=== PATIENT | male | born 1965 | race Hispanic/Latino ===

== ENCOUNTER 2017-11-05 08:21 | Day surgery (SDC) | payer OTHER ==
[2017-11-02 16:44] VITALS: BMI 24.6
--- NOTE | 2017-11-05 06:12 | HP ---
HISTORY OF PRESENT ILLNESS: Darren Hightower is a 52-year-old male patient with a right inguinal humberto ia for several years. The patient lives in [place], helps take care of his mother who is over 9 0 years old. The patient is single. He desires repair of his hernia, which he has had over three ye ars is bothersome to him. ALLERGIES: None. TOBACCO: Less than a pack per day. ALCOHOL: Rarely. MEDICATIONS: None. PAST MEDICAL HISTORY: Noncontributory. PAST MEDICAL HISTORY: Noncontributory. SOCIAL HISTORY: The patient is self employed as a contractor. REVIEW OF SYSTEMS: [place] noncontributory. He has never had a colonoscopy. PHYSICAL EXAMINATION: VITAL SIGNS: 125/87, 82, 97.5 degrees, 162 pounds, 68 inches. HEAD, EARS, EYES, NOSE, AND THROAT: Unremarkable. LUNGS: Clear to auscultation. CARDIAC: Regular rate and rhythm without murmur or gallop. ABDOMEN: Soft, nontender. EXTREMITIES: Unremarkable. He has a large right inguinal hernia on standing, it is reducible. EXTREMITIES: Tests are normal. Left groin without hernia. ASSESSMENT AND PLAN: Right inguinal hernia. I have recommended mesh repair. He understands risks of infection, bleeding, reoperation, chronic pa in, recurrence of hernia and consents. We will proceed. The patient is self-pay and he will work ou t financial obligations.
[2017-11-05 09:28] LABS: #Basophils 0.1 thou/uL (0.0-0.2); #Eosinphils 0.1 thou/uL (0.0-0.7); #Lymphocytes 1.1 thou/uL (1.20-3.40); #Monocytes 1.4 thou/uL (0.11-0.59); #Neutrophils 10.5 thou/uL (1.40-6.50); %Basophils 0.4 % (0.0-1.0); %Eosinophils 0.8 % (0.0-10.0); %Lymphocytes 8.4 % (21.0-51.0); %Monocytes 10.5 % (0.0-10.0); %Neutrophils 79.8 % (42.0-75.0); Mean Corpuscular HGB CONC 32.1 g/dL (32.0-36.0); Mean Corpuscular Hemoglobin 29.7 pg (27.0-31.0); Mean Corpuscular Volume 92.3 fl (80.0-94.0); Mean Platelet Volume 7.6 fL (7.4-10.4); Platelet Count 269 thou/uL (130-400); RBC Distribution Width 13.9 % (11.5-14.5); Red Blood Cell (RBC) Count 4.38 mill/uL (4.70-6.10); White Blood Cell (WBC) Count 13.1 thou/uL (4.8-10.8)
[2017-11-05] MEDS ORDERED: CEFAZOLIN/Water 2 GM/20 ML SYRINGE ONE (09:32)
[2017-11-05] MEDS ORDERED: Ketorolac Tromethamine 30 MG/ML VIAL ONE (09:33)
[2017-11-05 09:51] LABS: Anion Gap 17 mmol/L (10-20); BUN (Urea Nitrogen) 14 mg/dL (8.4-25.7); Calc. Creatinine Clearance 125 mL/min (70-130); Calcium 8.9 mg/dL (7.8-10.44); Carbon Dioxide 22 mmol/L (22-29); Chloride 97 mmol/L (98-107); Estimated GFR-MDRD Greater than 90; Glucose 88 mg/dL (70-105); Potassium 3.8 mmol/L (3.5-5.1); Sodium 132 mmol/L (136-145)
[2017-11-05] MEDS ORDERED: Bupivacaine 0.25% HCL 30 ML VIAL ONE (09:52)
[2017-11-05] MEDS ORDERED: Lidocaine 2% w/Epinephrine 1:200K 20 ML VIAL ONE (09:52)
[2017-11-05] MEDS ORDERED: Fentanyl 100 MCG/2 ML VIAL ONE (09:56)
[2017-11-05] MEDS ORDERED: Midazolam HCl 2 mg/2 ml Vial ONE (09:56)
--- NOTE | 2017-11-05 12:11 | OP ---
DATE OF PROCEDURE: 11/05/2017 PREOPERATIVE DIAGNOSIS: Right inguinal hernia, indirect. POSTOPERATIVE DIAGNOSIS: Right inguinal hernia, indirect PROCEDURE: PHS mesh repair, indirect right inguinal hernia. SURGEON: Dr. Chaz Doty ANESTHESIA: General. Local 0.25% Marcaine, 30 mL, mixed with 1% Xylocaine with epinephrine, 30 mL t otal mixture used. PROCEDURE: The patient was taken to the operating room where under general anesthesia, abdomen, groi n, scrotum clipped of hair, prepared with ChloraPrep, draped in routine fashion. Ioban was used. Lo audra anesthetic infiltrated into skin and subcutaneous tissue about the incision and for ilioinguinal nerve block and an incision made in the right groin and carried down through the skin and subcutaneou s tissue to the external oblique, incising it in the direction of fibers dissecting the cord structur es free and surrounded with a Calvin drain. There was a very large hernia sac dissected free from t he cord structures. Hernia sac opened. It had fluid in it,. clear ascites appeared fluid. This was aspirated. This communicated with the abdominal cavity. Hernia sac highly ligated with 0 Nurolon p ursestring suture and the stump of the hernia sac, 0 Nurolon suture used to secure underlay portion o f the PHS mesh with 0 Nurolon suture. Underlay portion of the PHS mesh placed in the preperitoneal s pace and onlay portion placed in the inguinal canal, placing the extended portion superiorly in the i nguinal canal. Inferiorly, the mesh secured to Tano's ligament with interrupted suture of 0 Nurolo n. Laterally, the mesh incised to the connecting cylindrical ring and in synthetic internal ring cre ated by bringing the lateral mesh around the cord structures and securing it back together again and Poupart's ligament with 0 Nurolon suture. Hernia repair was intact and as all instruments, sponge, n eedle counts were correct, the external oblique was closed with continuous suture of 3-0 Monocryl, Ca mper's with continuous suture of 3-0 Monocryl, skin with continuous subcuticular suture of 4-0 Monocr yl and DermaGlue applied. Local anesthetic had been infiltrated about the space of the inguinal rafia l and space above and below Camper's fascia for postoperative pain control. The patient tolerated th e procedure well.
[2017-11-05] MEDS ORDERED: Lidocaine 1% PF 5 ML VIAL ONE (15:53)
[2017-11-05] MEDS ORDERED: Propofol 200 MG/20 ML VIAL ONE (15:53)
[2017-11-05] MEDS ORDERED: Ondansetron HCl/PF 4 MG/2 ML Vial ONE (15:53)
[2017-11-05] MEDS ORDERED: Dexamethasone 20 MG/5 ML VIAL ONE (15:53)
== END 2017-11-05 13:20 | disposition home or self-care (01) ==
LOC: SDC 08:21
PROVIDERS: ATTEND Specialist
PROC: 0YU50JZ Supplement Right Inguinal Region with Synthetic Substitute, Open Approach (ICD-10-PCS; principal; 2017-11-05)
DX: K40.90 Unilateral inguinal hernia, without obstruction or gangrene, not specified as recurrent (principal); F17.210 Nicotine dependence, cigarettes, uncomplicated; Z88.5 Allergy status to narcotic agent
CPT/HCPCS: 36415; 80048; 85025; C1781; J0131; J1100; J1885; J2001; J2250; J2405; J2704; J3010; S0020

== ENCOUNTER 2017-12-07 19:53 | Inpatient (IN) | payer MEDICAID, OTHER, SELFPAY ==
[2017-12-07 20:55] LABS: #Basophils 0.4 thou/uL (0.0-0.2); #Eosinphils 0.1 thou/uL (0.0-0.7); #Lymphocytes 1.1 thou/uL (1.20-3.40); #Monocytes 1.3 thou/uL (0.11-0.59); #Neutrophils 15.5 thou/uL (1.40-6.50); %Eosinophils 0.4 % (0.0-10.0); %Lymphocytes 5.8 % (21.0-51.0); %Monocytes 7.1 % (0.0-10.0); %Neutrophils 84.7 % (42.0-75.0); Hemoglobin 11.9 g/dL (14.0-18.0); Mean Corpuscular HGB CONC 32.3 g/dL (32.0-36.0); Mean Corpuscular Hemoglobin 31.9 pg (27.0-31.0); Mean Corpuscular Volume 98.8 fl (80.0-94.0); Mean Platelet Volume 7.3 fL (7.4-10.4); Platelet Count 275 thou/uL (130-400); RBC Distribution Width 15.6 % (11.5-14.5); Red Blood Cell (RBC) Count 3.72 mill/uL (4.70-6.10); White Blood Cell (WBC) Count 18.3 thou/uL (4.8-10.8)
[2017-12-07 21:01] LABS: INR-International Normal Ratio 1.2; PTT 27.6 SEC (22.9-36.1); Prothrombin Time 15.5 SEC (12.0-14.7)
[2017-12-07 21:16] LABS: ALT (SGPT) 59 U/L (8-55); AST (SGOT) 256 U/L (5-34); Albumin 2.6 g/dL (3.5-5.0); Alkaline Phosphatase 749 U/L (40-150); Anion Gap 17 mmol/L (10-20); BUN (Urea Nitrogen) 25 mg/dL (8.4-25.7); Bilirubin, Total 12.9 mg/dL (0.2-1.2); Calc. Creatinine Clearance 0 mL/min (70-130); Calcium 8.3 mg/dL (7.8-10.44); Carbon Dioxide 23 mmol/L (22-29); Chloride 89 mmol/L (98-107); Estimated GFR-MDRD 66; Globulin 4.6 g/dL (2.4-3.5); Glucose 92 mg/dL (70-105); Protein, Total 7.2 g/dL (6.0-8.3); Sodium 124 mmol/L (136-145)
[2017-12-07] MEDS ORDERED: Enoxaparin Sodium 100 MG/ML SYRINGE ONE (21:36)
[2017-12-07] MEDS ORDERED: Sodium Chloride 0.45% 1,000 ML IV SCH (22:52)
[2017-12-07] MEDS ORDERED: Ondansetron ODT 4 MG TAB SL PRN (22:52)
[2017-12-07] MEDS ORDERED: Acetaminophen 325 MG TAB PO PRN (22:52)
[2017-12-07] MEDS ORDERED: Ondansetron HCl/PF 4 MG/2 ML Vial IVP PRN (22:52)
[2017-12-07] MEDS ORDERED: Fentanyl 100 MCG/2 ML VIAL SLOW IVP PRN (22:57)
[2017-12-07 23:06] VITALS: BMI 25.5
[2017-12-08] MEDS ORDERED: Milk Of Magnesia 30 ML UDCUP PO PRN (01:47)
[2017-12-08] MEDS ORDERED: Senokot 8.6 MG TAB PO PRN (01:47)
[2017-12-08] MEDS ORDERED: Ondansetron ODT 4 MG TAB PO PRN (01:47)
[2017-12-08] MEDS ORDERED: Ondansetron HCl/PF 4 MG/2 ML Vial IVP PRN (01:47)
[2017-12-08] MEDS ORDERED: Calcium Carbonate 500 MG ChewTAB PO PRN (01:47)
[2017-12-08] MEDS ORDERED: hydrALAZINE 20 MG/ML VIAL SLOW IVP PRN (02:04)
[2017-12-08] MEDS: Sodium Chloride 0.9% 1,000 ML IV SCH ×2 (02:14→22:40)
--- NOTE | 2017-12-08 02:27 | HP ---
DATE OF ADMISSION: 12/07/2017 The patient was seen and examined on 12/07/2017. CHIEF COMPLAINT: 1. Abdominal pain. 2. Adenoidectomy. PRIMARY CARE PHYSICIAN: None. HISTORY OF PRESENT ILLNESS: Patient is a 52-year-old male with no medical history presented to [facility] with abdominal pain that has been ongoing for approximately 2 weeks . He also noticed his abdomen to be more distended than usual. He has lost his appetite. He has al so lost a significant amount of weight, however, is unable to quantify. He felt nauseous without any vomiting. He also noticed yellow discoloration of his skin. No similar symptoms in the past. PAST MEDICAL HISTORY: Reviewed with the patient and none. PAST SURGICAL HISTORY: Right inguinal hernia repair earlier this year by Dr. Doty. ALLERGIES: Patient is allergic to CODEINE. CURRENT HOME MEDICATIONS: Reviewed with the patient and none. SOCIAL HISTORY: Patient smokes up to half pack a day. Denies alcohol use, denies any drug use. He is FULL CODE, makes his own decisions with the help of his family. He has worked in [employer] in the past. FAMILY HISTORY: Positive for diabetes. Denies any malignancy in his family. REVIEW OF SYSTEMS: The following complete review of systems was negative, unless otherwise mentioned in the HPI or below: CONSTITUTIONAL: Weight loss or gain, ability to conduct usual activities. SKIN: Rash, itching. EYES: Double vision, pain. ENT/MOUTH: Nose bleeding, neck stiffness, pain, tenderness. CARDIOVASCULAR: Palpitations, dyspnea on exertion, orthopnea. RESPIRATORY: Shortness of breath, wheezing, cough, hemoptysis, fever or night sweats. GASTROINTESTINAL: Poor appetite, abdominal pain, heartburn, nausea, vomiting, constipation, or diarr hea. GENITOURINARY: Urgency, frequency, dysuria, nocturia. MUSCULOSKELETAL: Pain, swelling. NEUROLOGIC/PSYCHIATRIC: Anxiety, depression. ALLERGY/IMMUNOLOGIC: Skin rash, bleeding tendency. PHYSICAL EXAMINATION: VITAL SIGNS: In the emergency room, temperature 98.4, respiration 18, pulse rate of 89, blood pressu re 117/85 with O2 saturation 100% on room air. GENERAL: A 52-year-old male, cachectic, in no apparent distress. HEENT: Head atraumatic, normocephalic. Sclerae icteric. Dry mucous membrane, no oral lesion. NECK: Supple, no JVD, no carotid bruit. LUNGS: Clear to auscultation bilaterally with diminished air entry at bases. HEART: S1, S2 present. Regular rate and rhythm. No rubs or gallops. ABDOMEN: Distended with shifting dullness. It was essentially nontender. No rebound, guarding, no costovertebral angle tenderness. EXTREMITIES: 1+ edema in bilateral lower extremities. SKIN: Warm and dry with yellow discoloration. LYMPH NODES: No palpable lymph nodes in the neck. PERIPHERAL VASCULAR: Radial pulses palpable bilaterally. MUSCULOSKELETAL: No joint swelling or tenderness. PERIPHERAL VASCULAR: Radial pulses palpable bilaterally. LABORATORY AND X-RAY FINDINGS: WBC count 16.9 with hemoglobin 12, platelet count 256. INR 1.2, PT o f 15.5. Sodium of 129, potassium 5.1, chloride 90. Lactic acid 3.3, albumin of 2.7, total bilirubin 13.6 with direct bilirubin around 10, AST 256, ALT 63, alkaline phosphatase 743. Lipase was normal. CT scan of the abdomen by my review with IV contrast showed diffuse hepatic metastasis with moderat e ascites and several small nodules at the lung base with possible thrombus in the superior mesenteri c vein. Chest x-ray by my review was negative for infiltrate. IMPRESSION: 1. Abdominal discomfort due to malignancy, primary unknown. 2. Diffuse ascites, probably due to malignancy. 3. Cachexia. 4. Suspected portal vein thrombosis, status post 1 dose of Lovenox in the emergency room. 5. Dehydration. 6. Ongoing tobacco abuse. 7. Hyponatremia. 8. Lactic acidosis. 9. Abnormal liver function tests secondary to metastasis. 10. Moderate protein calorie malnutrition. 11. Leukocytosis, unlikely to be infectious. PLAN: The patient will be monitored on the medical floor. We will consult Gastroenterology as well as Oncology. We will keep him n.p.o. past midnight for possible intervention. We will repeat lactic acid in the a.m. Monitor sodium levels. Gentle IV hydration for now due to contrast exposure. Vida or markers have been sent from the emergency room. We will consult a walking program. Plan of care was discussed with the patient in detail. He stated understanding.
[2017-12-08 05:08] LABS: Bilirubin Large (Negative); Blood, Urine Negative (Negative); Clarity CLEAR (Clear); Glucose, Urine (Dipstick) Negative (Negative); Leukocyte Small (Negative); Nitrite Positive (Negative); Protein, Urine (Dipstick) Trace mg/dL (Neg-Trace); Specific Gravity, Urine 1.042 (1.002-1.036)
[2017-12-08 05:10] LABS: Bacteria/HPF None Seen HPF (None Seen); Hyaline Casts/LPF 4-6 HYALINE CAST LPF (0-3 Hyaline); Pathc Cast-AUWi Flag 0.67 (0-2.49); Squamous Epithelial None Seen HPF (0-3)
[2017-12-08 05:25] LABS: RBC/HPF 0-3 HPF (0-3)
[2017-12-08 06:07] LABS: Lactic Acid 2.8 mmol/L (0.5-2.2)
[2017-12-08 06:11] LABS: Anion Gap 13 mmol/L (10-20); BUN (Urea Nitrogen) 27 mg/dL (8.4-25.7); Calc. Creatinine Clearance 77 mL/min (70-130); Calcium 8.2 mg/dL (7.8-10.44); Carbon Dioxide 26 mmol/L (22-29); Chloride 92 mmol/L (98-107); Estimated GFR-MDRD 64; Glucose 100 mg/dL (70-105); Potassium 4.8 mmol/L (3.5-5.1); Sodium 126 mmol/L (136-145)
[2017-12-08] MEDS: Docusate 100 MG CAP PO SCH ×2 (08:39→20:43)
[2017-12-08] MEDS: Famotidine 20 MG TAB PO SCH ×2 (08:39→20:43)
[2017-12-08] MEDS ORDERED: Prevnar 13-Val Conj/PF 0.5 ML SYRINGE IM ONE (09:00)
--- NOTE | 2017-12-08 11:38 | PDOC.PN ---
- Subjective Encounter Start Date: 12/08/17 Encounter Start Time: 11:15 Subjective: f/u for abd pain, weight loss and hepatic masses likely malignant process -: with ascites. c/o back and some abd pain. GI consult pending. - Objective Resuscitation Status: Resuscitation Status FULL:Full Resuscitation MAR Reviewed: Yes Vital Signs & Weight: Vital Signs (12 hours) Temp Pulse Resp BP Pulse Ox 12/08/17 08:00 97.8 F 89 16 97 12/08/17 07:36 97.8 F 89 16 123/84 97 12/08/17 04:00 97.7 F 92 20 130/83 97 12/08/17 00:00 98.0 F 92 18 124/81 96 Weight Weight 168 lb 3.2 oz I&O: 12/07/17 12/08/17 12/09/17 06:59 06:59 06:59 Intake Total 792 Output Total 500 Balance 292 Result Diagrams: 12/07/17 20:43 12/08/17 04:50 Additional Labs: Microbiology 12/07/17 22:01 Venous blood - Left Hand Blood Culture - Preliminary Specimen has been received and culture in progress. No Growth to date. 12/07/17 22:00 Venous blood - Right Arm Blood Culture - Preliminary Specimen has been received and culture in progress. No Growth to date. Laboratory Tests 11/05/17 12/07/17 12/07/17 09:20 15:50 15:50 WBC 13.1 H 16.9 H Hgb 12.0 L Sodium 129 L Total Bilirubin AST ALT Alkaline Phosphatase Carcinoembryonic Ag 12/07/17 12/07/17 20:43 20:43 WBC Hgb Sodium 124 L Total Bilirubin 12.9 H AST 256 H ALT 59 H Alkaline Phosphatase 749 H Carcinoembryonic Ag 301.69 H Radiology Reviewed by me: Yes (CT abd/pel - multiple hepatic lesions, ?sigmoid mass, ? SMV thrombus) Phys Exam - Physical Examination Constitutional: NAD alert, responsive + scleral icterus HEENT: PERRLA, oral pharynx no lesions Neck: no JVD, supple Respiratory: no wheezing, clear to auscultation bilateral Cardiovascular: RRR distended, +ascites Gastrointestinal: non-tender, positive bowel sounds generalized muscle atrophy Musculoskeletal: pulses present, edema present Neurological: normal sensation, moves all 4 limbs Psychiatric: A&O x 3 Skin: normal turgor, cap refill <2 seconds Dx/Plan (1) Liver masses Code(s): R16.0 - HEPATOMEGALY, NOT ELSEWHERE CLASSIFIED Status: Acute Comment: Suspicious for malignancy and metastatic process, GI consult, bx pending (2) Ascites Code(s): R18.8 - OTHER ASCITES Status: Acute Comment: Suspected malignant ascites, will need paracentesis for fluid evaluation and pathology (3) Anorexia Code(s): R63.0 - ANOREXIA Status: Acute Comment: secondary to #1 (4) Transaminitis Code(s): R74.0 - NONSPEC ELEV OF LEVELS OF TRANSAMNS & LACTIC ACID DEHYDRGNSE Status: Acute Comment: Supportive care, serial monitoring (5) Hyperbilirubinemia Code(s): E80.6 - OTHER DISORDERS OF BILIRUBIN METABOLISM Status: Acute (6) Hyponatremia Code(s): E87.1 - HYPO-OSMOLALITY AND HYPONATREMIA Status: Acute Comment: ? acute/subacute, likely multifactorial given ascites, poor po intake and concern for malignant process - Plan social work specialist, out of bed/ambulate, DVT proph w/SCDs Continue supportive mgmt -: GI consult pending -: Pain control with Morphine Sulfate 2mg IV q4h prn -: Hold Lovenox due to potential bx/procedures -: Clear liquids * Am lab: CMP, CBC, Hepatitis A/B/C
[2017-12-08] MEDS ORDERED: traMADol HCl 50 MG TAB PO PRN (11:47)
--- NOTE | 2017-12-08 16:41 | CON ---
DATE OF CONSULTATION: 12/08/2017 HISTORY: This is a 52-year-old male admitted with abdominal pain. He had right inguinal he rnia repair about a month ago. At that time, his abdomen was apparently normal. Since then it has b ecome markedly distended and the patient has developed pain. CT scan of the abdomen and pelvis showe d numerous liver metastasis. It also showed several small nodules in the lung bases, enlarged periao rtic lymph node measuring 2.5 cm was noted. There was mural thickening in the upper sigmoid colon. In my conversation with the radiologist, there is no intrahepatic biliary dilatation. They seems to be thrombus at the junction of the superior mesenteric and portal vein. Chest x-ray was reported sharonda ar. PAST MEDICAL HISTORY: No significant medical illnesses. PAST SURGICAL HISTORY: Hernia repair as mentioned earlier. ALLERGIES: CODEINE. OUTPATIENT MEDICATIONS: None. PERSONAL AND SOCIAL HISTORY: The patient used to smoke in the past. He denies alcohol use. I belie ve he is . He lives with his [id number] and takes care of her. The [id number] is 96 y ears old. FAMILY HISTORY: Positive for diabetes. No family history of malignancy. REVIEW OF SYSTEMS: As above. PHYSICAL EXAMINATION: GENERAL: The patient appears chronically ill. VITAL SIGNS: Height 5 feet 8 inches, weight 168 pounds, BSA 1.9. Pulse 89, temperature is 97.8, blo od pressure 123/54. HEENT: Unremarkable except for deep jaundice. LYMPH NODES: There might be left supraclavicular adenopathy. This is soft about 2 cm in size. No o ther adenopathy felt in the neck, axillae or groins. CHEST: Clear to percussion and auscultation. HEART: Regular rhythm. S1 and S2. ABDOMEN: Grossly distended with tense ascites. No obvious masses. Bowel sounds normal. EXTREMITIES: Without pedal edema. 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 He might also have superior mesent justice/portal vein thrombosis. LABORATORY DATA: His chemistry profile shows bilirubin of 12.9, alkaline phosphatase 749, AST 256, a nd ALT 59. I discussed the case with Dr. Cast, who did not see intrahepatic biliary dilatation an d the patient did not likely to benefit from cutaneous biliary drainage. The tempo of the disease is extremely rapid has it seems everything developed during the past 30 days. At this time, I do not s ee what can be done to help this patient, primarily because his liver tests are so grossly abnormal. He might derive some relief by abdominal paracentesis. Thanks very much for asking me to participate in his care. I will talk to the patient again tomorrow .
[2017-12-08] MEDS ORDERED: GoLYTELY 4,000 ml Bottle PO SCH (17:30)
--- NOTE | 2017-12-09 03:01 | CON ---
DATE OF CONSULTATION: 12/08/2017 REASON FOR CONSULTATION: Abnormal GI imaging. CONSULTING PHYSICIAN: Darryl Hutchison M.D. HISTORY OF PRESENT ILLNESS: The patient is a 52-year-old male with no significant past medical histo ry presenting with complaints of abdominal pain and increased abdominal distention. He states that cesar upton was in his usual state of health until approximately 2 weeks ago when he began to have increased ab dominal bloating and increasing abdominal distention/GERD associated with this also progressive worse latrice jaundice characterized by yellowing of the skin and his eyes. He also endorses associated incre asing back pain and stomach pain described as cramping/pressure type pain 10/10 in severity, worse wi th movement and better with medications. He currently denies any nausea, vomiting, fevers, chills, G I bleeding, odynophagia or dysphagia. With the worsening of his symptoms, he sought medical attentio n in [place] where a CT scan showed multiple liver lesions within both lobes of the liver concer [facility] for metastatic disease and subsequently transferred to [facility]. REVIEW OF SYSTEMS: A 10-category review of systems was obtained with all responses negative except f or the pertinent positives as listed in HPI. PAST MEDICAL HISTORY: As per HPI. PAST SURGICAL HISTORY: Right inguinal hernia repair. FAMILY HISTORY: Denies any GI malignancy. SOCIAL HISTORY: Smokes approximately one half pack per day. Denies any alcohol or illicit drug use. OUTPATIENT MEDICATIONS: None. ALLERGIES: CODEINE. PHYSICAL EXAMINATION: GENERAL: Temperature 98.3, pulse 97, blood pressure 122/85, respiratory rate 16, satting 97% on room air. GENERAL: The patient is lying in bed, in no acute distress. He is alert and oriented x4. HEENT: Neck is supple. No JVD noted. CARDIOVASCULAR: Regular rate and rhythm with no discernible murmurs, gallops or rubs. RESPIRATORY: Clear to auscultation bilaterally. No discernible wheezes or rales. ABDOMEN: Normoactive bowel sounds, moderate to severe abdominal distention that is tenderness to pal pation. No caput medusae seen. EXTREMITIES: 1+ bilateral lower extremity edema extending to the mid richter/knee. LABORATORY DATA: CBC with a white blood cell count of 18.3, hemoglobin 11.9, hematocrit 36.8, platel ets 275. Chemistry with a sodium of 126, potassium 4.8, chloride 92, CO2 is 26, BUN 27, creatinine 1 .19, glucose 100, AST 256, ALT 59, alkaline phosphatase 749, total bilirubin 12.9, lactate 2.8. Urin alysis consistent with UTI. IMAGING DATA: CT abdomen and pelvis obtained at the [place] [facility] showed numerous diffuse low dens ity lesions throughout the liver consistent with metastatic disease and also showing a sigmoid wall t hickening. ASSESSMENT AND PLAN: The patient is a 52-year-old male with no significant past medical history pres enting with increased abdominal ascites, lower extremity edema and gastrointestinal imaging consisten t with metastatic disease from a probable colonic primary. Metastatic disease: The patient is presenting with a fairly acute onset of increased abdominal bloat ing, increased abdominal girth due to ascites, jaundice, elevated LFTs on routine evaluation in prima rily a cholestatic type pattern and imaging consistent with metastatic disease. At this point in joaquim e, the origin of the malignancy is unknown; however, he does also show thickening within the sigmoid colon concerning for possible colonic adenocarcinoma with metastatic disease to the liver, peritoneum and possible lungs. RECOMMENDATIONS: 1. We will place the patient on clear liquid diet today in anticipation for procedures tomorrow. 2. We will plan for both EGD and colonoscopy tomorrow for evaluation of the GI tract and possible GI malignancy with metastatic spread. 3. We would place the patient on a low sodium diet given the significant ascites on examination toda y. 4. We would obtain paracentesis with culture, serum albumin as well as ascites albumin to determine SAAG ratio and further facilitate diagnosis of the underlying condition. We will continue to follow. Please call with any questions.
[2017-12-09 05:19] LABS: #Eosinphils 0.1 thou/uL (0.0-0.7); #Lymphocytes 1.1 thou/uL (1.20-3.40); #Monocytes 1.4 thou/uL (0.11-0.59); #Neutrophils 14.6 thou/uL (1.40-6.50); %Eosinophils 0.5 % (0.0-10.0); %Lymphocytes 6.5 % (21.0-51.0); %Neutrophils 85.1 % (42.0-75.0); Hemoglobin 10.6 g/dL (14.0-18.0); Mean Corpuscular HGB CONC 32.9 g/dL (32.0-36.0); Mean Corpuscular Hemoglobin 32.3 pg (27.0-31.0); Mean Corpuscular Volume 98.2 fl (80.0-94.0); Mean Platelet Volume 7.6 fL (7.4-10.4); Platelet Count 232 thou/uL (130-400); RBC Distribution Width 15.6 % (11.5-14.5); Red Blood Cell (RBC) Count 3.29 mill/uL (4.70-6.10); White Blood Cell (WBC) Count 17.2 thou/uL (4.8-10.8)
[2017-12-09 05:32] LABS: ALT (SGPT) 76 U/L (8-55); AST (SGOT) 366 U/L (5-34); Albumin 2.5 g/dL (3.5-5.0); Alkaline Phosphatase 679 U/L (40-150); Bilirubin, Total 12.6 mg/dL (0.2-1.2); Protein, Total 6.7 g/dL (6.0-8.3)
[2017-12-09 05:33] LABS: ALT (SGPT) 73 U/L (8-55); AST (SGOT) 361 U/L (5-34); Albumin 2.5 g/dL (3.5-5.0); Alkaline Phosphatase 673 U/L (40-150); Anion Gap 15 mmol/L (10-20); BUN (Urea Nitrogen) 26 mg/dL (8.4-25.7); Bilirubin, Total 12.4 mg/dL (0.2-1.2); Calc. Creatinine Clearance 79 mL/min (70-130); Calcium 7.9 mg/dL (7.8-10.44); Carbon Dioxide 25 mmol/L (22-29); Chloride 89 mmol/L (98-107); Estimated GFR-MDRD 66; Globulin 4.2 g/dL (2.4-3.5); Glucose 91 mg/dL (70-105); Potassium 4.5 mmol/L (3.5-5.1); Protein, Total 6.7 g/dL (6.0-8.3); Sodium 124 mmol/L (136-145)
[2017-12-09 05:51] LABS: HBCM Index 0.07 S/CO (0-0.79); HBSAg Index 0.22 S/CO (0-0.99); Hep A IgM AB Non-Reactive (NonReactive); Hep A IgM S/CO 0.14 S/CO (0-0.79); Hep B Surf Ag Non-Reactive S/CO (NonReactive); Hepatitis B Core IGM Abs Non-Reactive (NonReactive)
[2017-12-09 08:09] LABS: Hep C IgG Ab Reflex HepC Qnt (NonReactive)
[2017-12-09 08:10] LABS: Hep C Index 10.23 S/CO (0-0.79)
[2017-12-09] MEDS: Famotidine 20 MG TAB PO SCH ×2 (09:00→21:10)
[2017-12-09] MEDS: Docusate 100 MG CAP PO SCH ×2 (09:00→21:10)
--- NOTE | 2017-12-09 13:08 | PDOC.PN ---
- Subjective Encounter Start Date: 12/09/17 Encounter Start Time: 13:00 Subjective: f/u for ascites, hepatic masses suspicious for malignancy. Paracentesis -: pending. Colonoscopy showed near obstruction of sigmoid 20cm above -: anal verge. - Objective Resuscitation Status: Resuscitation Status FULL:Full Resuscitation MAR Reviewed: Yes Vital Signs & Weight: Vital Signs (12 hours) Temp Pulse Resp BP Pulse Ox 12/09/17 08:00 97.6 F 90 18 110/74 98 Weight Weight 168 lb 3.2 oz I&O: 12/08/17 12/09/17 12/10/17 06:59 06:59 06:59 Intake Total 792 3350 Output Total 500 Balance 292 3350 Result Diagrams: 12/09/17 04:17 12/09/17 04:17 Additional Labs: Microbiology 12/07/17 22:01 Venous blood - Left Hand Blood Culture - Preliminary Specimen has been received and culture in progress. No Growth to date. 12/07/17 22:01 Venous blood - Left Hand Blood Culture - Preliminary NO GROWTH AT 48 HOURS 12/07/17 22:00 Venous blood - Right Arm Blood Culture - Preliminary Specimen has been received and culture in progress. No Growth to date. 12/07/17 22:00 Venous blood - Right Arm Blood Culture - Preliminary NO GROWTH AT 48 HOURS Laboratory Tests 11/05/17 12/07/17 12/07/17 09:20 15:50 15:50 WBC 13.1 H 16.9 H Hgb 12.0 L Sodium 129 L Total Bilirubin AST ALT Alkaline Phosphatase Carcinoembryonic Ag Hepatitis C Antibody 12/07/17 12/07/17 12/08/17 20:43 20:43 04:50 WBC Hgb Sodium 124 L 126 L Total Bilirubin 12.9 H AST 256 H ALT 59 H Alkaline Phosphatase 749 H Carcinoembryonic Ag 301.69 H Hepatitis C Antibody 12/09/17 12/09/17 12/09/17 04:17 04:17 04:17 WBC Hgb Sodium Total Bilirubin 12.4 H 12.6 H AST 361 H 366 H ALT 73 H 76 H Alkaline Phosphatase 673 H 679 H Carcinoembryonic Ag Hepatitis C Antibody Reflex HepC Qnt H 12/09/17 04:17 WBC Hgb Sodium Total Bilirubin AST ALT Alkaline Phosphatase Carcinoembryonic Ag 411.85 H Hepatitis C Antibody Phys Exam - Physical Examination Constitutional: NAD + scleral icterus HEENT: PERRLA, oral pharynx no lesions Neck: no JVD, supple diminished in bases Respiratory: no wheezing Cardiovascular: RRR distended diffusely with TTP Gastrointestinal: positive bowel sounds Musculoskeletal: pulses present, edema present Neurological: normal sensation, moves all 4 limbs Psychiatric: A&O x 3 Skin: normal turgor, cap refill <2 seconds Dx/Plan (1) Liver masses Code(s): R16.0 - HEPATOMEGALY, NOT ELSEWHERE CLASSIFIED Status: Acute Comment: Suspicious for malignancy and metastatic process given sigmoid mass likely malignant, Medical oncology following, likely chemo to follow (2) Ascites Code(s): R18.8 - OTHER ASCITES Status: Acute Comment: Suspected malignant ascites, will need paracentesis for fluid evaluation and pathology (3) Anorexia Code(s): R63.0 - ANOREXIA Status: Acute Comment: secondary to #1 (4) Transaminitis Code(s): R74.0 - NONSPEC ELEV OF LEVELS OF TRANSAMNS & LACTIC ACID DEHYDRGNSE Status: Acute Comment: Supportive care, serial monitoring (5) Hyperbilirubinemia Code(s): E80.6 - OTHER DISORDERS OF BILIRUBIN METABOLISM Status: Acute (6) Hyponatremia Code(s): E87.1 - HYPO-OSMOLALITY AND HYPONATREMIA Status: Acute Comment: ? 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 Hospice/Palliative care consult
[2017-12-09] MEDS ORDERED: Promethazine HCl 25 MG/ML VIAL IM PRN (14:03)
[2017-12-09] MEDS ORDERED: Ondansetron HCl/PF 4 MG/2 ML Vial IVP PRN (14:03)
[2017-12-09] MEDS ORDERED: Promethazine HCl 25 MG/ML VIAL SLOW IVP PRN (14:03)
--- NOTE | 2017-12-09 14:49 | OP ---
DATE OF PROCEDURE: 12/09/2017 PROCEDURES PERFORMED: EGD with biopsy, colonoscopy with biopsy. INDICATION FOR PROCEDURES: Abnormal GI imaging concerning for metastatic disease. DESCRIPTION OF PROCEDURES: After the risks and benefits of the procedures were explained to the betsy ent including risks of infection, bleeding, perforation, reaction to anesthesia and/or pain, informed consent was obtained. The patient was then taken back to the endoscopy suite where deep sedation wa s administered via propofol and anesthesia support. The standard gastroscope was then introduced int o the mouth with intubation of the esophagus, stomach and proximal small intestine with the findings listed below. After this procedure was completed, the bed was rotated around for the colonoscopy. T hen, using the standard colonoscope, it was introduced into the rectum and advanced to approximately 20 cm past the anal verge where further progression could not be achieved due to a large colonic obst ructing mass. The quality of the prep for the colonoscopy was good. The patient tolerated the proce dures well with no immediate perioperative complications. EGD: FINDINGS: Esophagus: Normal appearing mucosa was seen in the proximal, mid and distal esophagus. T here was no evidence of erosions, ulcerations, or mass lesions. Both the diaphragmatic pinch and GE junction were well seen at 40 cm past the incisors. Stomach: Diffusely erythematous and enlarged gastric rugae were seen throughout the entire stomach w ithout any evidence of erosions or ulcerations. Multiple biopsies were taken from these rugae for ev aluation. Otherwise, normal appearing mucosa was seen in the cardia, fundus, body, antrum and incisu ra. Duodenum: Enlarged duodenal folds were seen within the duodenal bulb itself, but without surrounding erythema, ulceration or mass lesions. Multiple biopsies were taken for evaluation. Upon entry into the second portion of the duodenum, normal appearing mucosa was seen without any additional abnormal ities. IMPRESSION: Enlarged gastric rugae and enlarged duodenal folds concerning for underlying infiltrativ e disease and/or metastatic disease. COLONOSCOPY: SHARIF normal, no external hemorrhoids, normal sphincter tone, but with internal hemorrhoids palpated on digital rectal examination. COLON FINDINGS: The colonoscope was advanced to 20 cm past the anal verge when a large near obstruct ing mass was encountered. Attempts to traverse the mass were unsuccessful with significant narrowing of the colonic lumen noted with the mass occupying approximately 90% of the colonic lumen. Multiple biopsies were taken for evaluation of this colonic mass and placed in specimen jar for histological evaluation. The scope was then withdrawn slowly with careful examination of mucosa performed with no additional abnormalities. Within the rectum on retroflexion, there were noted small to medium sized internal hemorrhoids. IMPRESSION: 1. A large near obstructing (90% of the colonic lumen) mass was seen at approximately 20 cm past the anal verge (rectosigmoid colon) consistent with a diagnosis of colonic adenocarcinoma, status post b iopsies. 2. Medium sized internal hemorrhoids. 3. Complete evaluation of the colon could not be performed due to significant luminal narrowing seco ndary to the presence of the rectosigmoid mass. RECOMMENDATIONS: 1. Follow with the primary inpatient team. 2. We will await biopsy results. 3. Oncology has already been consulted. I appreciate their assistance in this matter. 4. Could consider General Surgery consultation for palliative colostomy placement. 5. Would proceed with paracentesis for both diagnostic and therapeutic purposes with probable metast atic disease occupying the peritoneal cavity and causing his ascites.
[2017-12-09] MEDS ORDERED: PROPOFOL 200 MG/20 ML VIAL ONE (15:53)
[2017-12-09] MEDS ORDERED: Lidocaine 1% PF 5 ML VIAL ONE (15:53)
[2017-12-09] MEDS ORDERED: CEFAZOLIN/Water 2 GM/20 ML SYRINGE SLOW IVP SCH (16:30)
--- NOTE | 2017-12-09 18:49 | HP ---
HISTORY OF PRESENT ILLNESS: Darren Kapadia is a 52-year-old male patient who on 11/05/2017 performe d a PHS repair of right inguinal hernia. The patient was doing well postoperatively. He called my o ffice in the last few days complaining of bloating. He did not have any insurance. I recommended he obtained a CAT scan of the abdomen and pelvis and recommended a Gastroenterology consultation outpat ient for colonoscopy as I realize at his age of 52, he has never had one. The patient instead presen [place] to the emergency room in the last few days and had a CAT scan of the abdomen and pelvis on 2017 demonstrating diffuse hepatic metastasis, bilobar, extensive ascites, and changes in the lower c olon, but there was no nonobstructive GI problem. The patient was admitted to the [facility] from the emergency room on 12/07/2017, transfer from [place], admitted to the Hospitalist Service, and Gastroenterology, Dr. Simon consulted and colonoscopy revealed 90% obstructive process in his re ctosigmoid, 20 cm from the anal verge. Dr. Simon could not pass his endoscope beyond it. Multiple b iopsies obtained. LABORATORY: Revealed white count of 17, hemoglobin of 10. Sodium 124, BUN 26. CA level 411. I hav e been asked to see him regarding placement of a MediPort. ALLERGIES: CODEINE. TOBACCO: Less than a pack a day. ALCOHOL: Rare. MEDICATIONS: None. PAST SURGICAL HISTORY: Noncontributory except his right inguinal hernia repair that I performed in l ast few weeks. SOCIAL HISTORY: The patient is a construction mgr. PHYSICAL EXAMINATION: VITAL SIGNS: 5 feet 8, 168 pounds, 25 BMI, 97.3, 89, 18, 130/79. HEAD, EARS, EYES, NOSE, AND THROAT: Unremarkable. LUNGS: Clear to auscultation. CARDIAC: Regular rate and rhythm without murmur or gallop. ABDOMEN: Soft, distended. Positive fluid wave, not tympanitic, markedly protuberant. Right groin, well healed inguinal hernia incision. Scrotum, testicles normal and tight hernia repair. EXTREMITIES: Unremarkable. ASSESSMENT AND PLAN: Diffuse hepatic metastasis, colorectal cancer, biopsies pending. CEA level was markedly elevated. We will plan placement of a MediPort tomorrow. Risks and benefits explained and he consents. At this point, his CAT scan does not reveal a GI obstructive problem and diverting colostomy is not n ecessary, but it may be necessary in the future pending clinical course. We will place a MediPort, s o I could start chemotherapy right away.
[2017-12-10 05:36] LABS: ALT (SGPT) 68 U/L (8-55); AST (SGOT) 318 U/L (5-34); Albumin 2.4 g/dL (3.5-5.0); Alkaline Phosphatase 648 U/L (40-150); Anion Gap 13 mmol/L (10-20); BUN (Urea Nitrogen) 25 mg/dL (8.4-25.7); Bilirubin, Total 11.8 mg/dL (0.2-1.2); Calc. Creatinine Clearance 89 mL/min (70-130); Calcium 7.9 mg/dL (7.8-10.44); Carbon Dioxide 25 mmol/L (22-29); Chloride 89 mmol/L (98-107); Estimated GFR-MDRD 76; Globulin 4.1 g/dL (2.4-3.5); Glucose 104 mg/dL (70-105); Potassium 4.2 mmol/L (3.5-5.1); Protein, Total 6.5 g/dL (6.0-8.3); Sodium 123 mmol/L (136-145)
[2017-12-10 06:05] LABS: Band 1 % (5-11); Hemoglobin 10.4 g/dL (14.0-18.0); Lymphocytes 6 % (21-51); MDiff Complete? YES; Macrocytosis SLIGHT = 6-15 cells (100X) (0-5/hpf); Mean Corpuscular Hemoglobin 32.6 pg (27.0-31.0); Mean Corpuscular Volume 98.7 fl (80.0-94.0); Mean Platelet Volume 7.5 fL (7.4-10.4); Monocytes 13 % (0-10); Neutrophil 79 % (42-75); PLT Morphology Comment Appears Adequate; Platelet Count 227 thou/uL (130-400); RBC Distribution Width 15.8 % (11.5-14.5); Reactive Lymphocytes 1 % (0-10); Red Blood Cell (RBC) Count 3.19 mill/uL (4.70-6.10); White Blood Cell (WBC) Count 14.5 thou/uL (4.8-10.8)
[2017-12-10] MEDS ORDERED: Sodium Bicarbonate 2.5 MEQ/5 ML VIAL ONE (07:31)
--- NOTE | 2017-12-10 09:41 | ULT ---
ULTRASOUND GUIDED PARACENTESIS WITH IMAGING: Date: 12/10/17 HISTORY: New onset ascites, possible malignancy. COMPARISON: CT abdomen and pelvis dated 12/12/17. FINDINGS: Patient was brought to the ultrasound suite. All questions were answered. The patient's right lower q uadrant was prepped and draped in the normal sterile fashion. 4 mL of buffered lidocaine was instille d into the superficial and deep soft tissues. A small dermatotomy was made. Using a 5 Eston[place] Yueh needle, the peritoneal space was accessed. 3 lite rs of straw-colored fluid was aspirated. The patient tolerated the procedure well and without complic ation. IMPRESSION: Technically successful right lower quadrant ultrasound guided paracentesis with 3,000 mL of aspirated fluid. POS: LUIS
[2017-12-10] MEDS: Famotidine 20 MG TAB PO SCH ×2 (10:54→22:03)
[2017-12-10] MEDS: Docusate 100 MG CAP PO SCH ×2 (10:54→22:03)
[2017-12-10] MEDS ORDERED: Lidocaine 1% PF 5 ML VIAL ONE (15:03)
[2017-12-10] MEDS ORDERED: PROPOFOL 200 MG/20 ML VIAL ONE (15:03)
[2017-12-10] MEDS ORDERED: CEFAZOLIN/Water 2 GM/20 ML SYRINGE ONE (15:06)
[2017-12-10] MEDS ORDERED: Bupivacaine HCl 0.5%/Epinephrine 1:200,000/PF 30 ml Vial ONE (15:27)
[2017-12-10] MEDS ORDERED: Midazolam HCl 2 mg/2 ml Vial ONE (15:28)
[2017-12-10] MEDS ORDERED: Fentanyl 100 MCG/2 ML VIAL ONE (15:28)
[2017-12-10] MEDS ORDERED: Promethazine HCl 25 MG/ML VIAL SLOW IVP PRN (16:33)
[2017-12-10] MEDS ORDERED: Promethazine HCl 25 MG/ML VIAL IM PRN (16:33)
[2017-12-10] MEDS ORDERED: Ondansetron HCl/PF 4 MG/2 ML Vial IVP PRN (16:33)
--- NOTE | 2017-12-10 17:17 | RAD ---
PORTABLE CHEST ONE VIEW: Date: 12-10-17 Time: 4:41 p.m. History: Port-a-cath placement. Comparison: 12-07-17 FINDINGS/IMPRESSION: There has been installation of a right subclavian port-a-cath with tip in the projection of the SVC. No lobar consolidation, pneumothoraces, or pleural effusions are seen. POS: OFF
--- NOTE | 2017-12-10 20:34 | PDOC.PN ---
- Subjective Encounter Start Date: 12/10/17 Encounter Start Time: 20:00 Subjective: f/u for likely metastatic colon adenocarcinoma awaiting final path results. -: s/p Mediport placement and paracentesis with 3L removed. Overall feels -: a little less full. Ate dinner without difficulty. - Objective Resuscitation Status: Resuscitation Status FULL:Full Resuscitation MAR Reviewed: Yes Vital Signs & Weight: Vital Signs (12 hours) Temp Pulse Resp BP Pulse Ox 12/10/17 10:30 98.1 F 92 16 118/71 96 12/10/17 10:00 96 116/75 12/10/17 09:30 93 111/73 12/10/17 09:15 92 109/69 Weight Weight 168 lb 3.2 oz I&O: 12/09/17 12/10/17 12/11/17 06:59 06:59 06:59 Intake Total 3350 240 Balance 3350 240 Result Diagrams: 12/10/17 04:10 12/10/17 04:10 Additional Labs: Microbiology 12/07/17 22:01 Venous blood - Left Hand Blood Culture - Preliminary Specimen has been received and culture in progress. No Growth to date. 12/07/17 22:01 Venous blood - Left Hand Blood Culture - Preliminary NO GROWTH AT 48 HOURS 12/07/17 22:00 Venous blood - Right Arm Blood Culture - Preliminary Specimen has been received and culture in progress. No Growth to date. 12/07/17 22:00 Venous blood - Right Arm Blood Culture - Preliminary NO GROWTH AT 48 HOURS Laboratory Tests 11/05/17 12/07/17 12/07/17 09:20 15:50 15:50 WBC 13.1 H 16.9 H Hgb 12.0 L Sodium 129 L Total Bilirubin AST ALT Alkaline Phosphatase Carcinoembryonic Ag Hepatitis C Antibody 12/07/17 12/07/17 12/08/17 20:43 20:43 04:50 WBC Hgb Sodium 124 L 126 L Total Bilirubin 12.9 H AST 256 H ALT 59 H Alkaline Phosphatase 749 H Carcinoembryonic Ag 301.69 H Hepatitis C Antibody 12/09/17 12/09/17 12/09/17 04:17 04:17 04:17 WBC Hgb Sodium Total Bilirubin 12.4 H 12.6 H AST 361 H 366 H ALT 73 H 76 H Alkaline Phosphatase 673 H 679 H Carcinoembryonic Ag Hepatitis C Antibody Reflex HepC Qnt H 12/09/17 04:17 WBC Hgb Sodium Total Bilirubin AST ALT Alkaline Phosphatase Carcinoembryonic Ag 411.85 H Hepatitis C Antibody Phys Exam - Physical Examination ill-appearing, alert, responsive + scleral icterus HEENT: PERRLA, oral pharynx no lesions Neck: no JVD, supple diminished in bases Cardiovascular: RRR distended with fluid wave Gastrointestinal: non-tender, positive bowel sounds cachetic, general atrophy Musculoskeletal: pulses present, edema present Neurological: normal sensation, moves all 4 limbs Psychiatric: A&O x 3 Skin: normal turgor, cap refill <2 seconds Dx/Plan (1) Colon adenocarcinoma Code(s): C18.9 - MALIGNANT NEOPLASM OF COLON, UNSPECIFIED Status: Acute Comment: suspected pending final path results after colonscopy, given overall clinical picture Stage IV advanced and end-stage process, planning for chemo once pathology reviewed (2) Liver masses Code(s): R16.0 - HEPATOMEGALY, NOT ELSEWHERE CLASSIFIED Status: Acute Comment: Suspicious for malignancy and metastatic process given sigmoid mass likely malignant, Medical oncology following, likely chemo to follow (3) Ascites Code(s): R18.8 - OTHER ASCITES Status: Acute Comment: Suspected malignant ascites, s/p paracentesis with 3L removed, may need additional ascites removed for comfort (4) Anorexia Code(s): R63.0 - ANOREXIA Status: Acute Comment: secondary to #1 (5) Transaminitis Code(s): R74.0 - NONSPEC ELEV OF LEVELS OF TRANSAMNS & LACTIC ACID DEHYDRGNSE Status: Acute Comment: Supportive care, serial monitoring (6) Hyperbilirubinemia Code(s): E80.6 - OTHER DISORDERS OF BILIRUBIN METABOLISM Status: Acute (7) Hyponatremia Code(s): E87.1 - HYPO-OSMOLALITY AND HYPONATREMIA Status: Acute Comment: ? acute/subacute, likely multifactorial given ascites, poor po intake and concern for malignant process (8) Sigmoid stricture Code(s): K56.699 - OTHER INTESTNL OBST UNSP TO PARTIAL VERSUS COMPLETE OBST Status: Acute Comment: CT imaging showing possible mass, colonoscopy confirmed likely malignant mass, consult gen surgery for resection - Plan plan discussed w/ family, psychologist social, out of bed/ambulate, DVT proph w/SCDs continue supportive mgmt -: Await final pathology results -: Planning for chemotherapy, Mediport placed 12/10/17 -: Palliative care consult -: AM lab: CMP, CBC * .
--- NOTE | 2017-12-10 22:34 | OP ---
DATE OF OPERATION: 12/10/2017 PREOPERATIVE DIAGNOSES: Metastatic colon cancer with ascites, hepatic metastasis, bilobar. POSTOPERATIVE DIAGNOSES: Metastatic colon cancer with ascites, hepatic metastasis, bilobar. PROCEDURE: Right subclavian vein low profile MediPort left access for use in this hospitalization. SURGEON: Dr. Chaz Doty. ANESTHESIA: TIVA. Local 0.5% Marcaine epinephrine, 30 mL, mixed with 1% Xylocaine with epinephrine 30 mL. PROCEDURE: Patient was taken to the operating room where under intravenous sedation, neck and chest were clipped of hair, prepared with chloraprep, draped in routine fashion. Local anesthetic infiltra [place] into skin and subcutaneous tissue about the operative site. Trocar catheter access the subclavia n vein infraclavicular right approach. Good return of venous blood obtained. J-wire threaded, troca r catheter removed. Skin incised and enlarged sharply carried down through the skin and subcutaneous tissue. Subcutaneous pocket created with blunt and sharp dissection using cautery for hemostasis. Dilator and pull-away sheath placed over the J-wire and J-wire and dilator removed. Catheter placed through pull-away sheath under fluoroscopic visualization. The tip placed in optimal position in the superior vena cava and catheter tailored to length, after the pull-away sheath was removed. Cathete r connected to the MediPort. MediPort placed in subcutaneous pocket. Subcutaneous tissues approxima [place] with 3-0 Monocryl after MediPort secured with 2 interrupted sutures of 3-0 Prolene. Skin approxi mated with continuous subcuticular suture of 4-0 Monocryl. Dermabond applied. accessed the Me diPort aspirated blood and flushed with heparinized saline solution. Sterile dressing applied. Fluo roscopic images revealed good line placement.
--- NOTE | 2017-12-10 23:50 | PRG ---
DATE OF SERVICE: 12/10/2017 REASON FOR CONSULTATION: Probable colonic malignancy. SUBJECTIVE: The patient states that he did well overnight with no acute problems or events. He has still not received the paracentesis that was ordered, but plans for later on today. He has also spok en with the Oncology Service with possible plans for chemotherapy. Currently, denies any nausea, vom iting, fevers or chills. OBJECTIVE: VITAL SIGNS: Temperature of 98.1, pulse 92, blood pressure 118/71, respiratory rate 16, satting 96% on room air. GENERAL: The patient lying in bed in no acute distress. Alert and oriented x4. ABDOMEN: Normoactive bowel sounds, tense with moderate to severe distention. Positive shifting dull ness. EXTREMITIES: One plus bilateral lower extremity edema extending to the mid richter/knee. LABORATORY DATA: CBC with a white blood cell count of 14.5, hemoglobin 10.4, hematocrit 31.4, platel ets 227. Chemistry with sodium of 123, potassium 4.2, chloride 89, CO2 of 25, BUN 25, creatinine 1.0 2, glucose 104. IMAGING DATA: Colonoscopy performed on 12/09/2017, showing a large near obstructing mass within the rectosigmoid colon concerning for primary colonic malignancy/adenocarcinoma. ASSESSMENT AND PLAN: The patient is a 52-year-old male with no significant past medical history pres enting with increased abdominal ascites, lower extremity edema and gastrointestinal imaging consisten t with metastatic disease from a probable colonic primary disease. Metastatic disease. The patient presented with a fairly acute onset of increased abdominal bloating, increased abdominal girth due to ascites, jaundice, elevated LFTs and abnormal imaging showing multiple lesions within th e liver and now with colonoscopy showing a probable adenocarcinoma within the rectosigmoid region. H e has been evaluated by the oncology service with plans to start the patient on chemotherapy with Med iPort placement later on today. RECOMMENDATIONS: 1. Would follow up with abdominal paracentesis for diagnostic and therapeutic purposes. Given likel ihood of colonic malignancy and probable peritoneal spread. 2. Oncology to start the patient on chemotherapy and will follow the patient after this. 3. The patient at one time, may need a general surgery consult for evaluation of possible colostomy for palliative purposes. We will sign off at this time. Please call with any questions.
[2017-12-11 06:35] LABS: Band 4 % (5-11); Hemoglobin 10.2 g/dL (14.0-18.0); Lymphocytes 12 % (21-51); MDiff Complete? YES; Mean Corpuscular Hemoglobin 30.9 pg (27.0-31.0); Mean Corpuscular Volume 99.8 fl (80.0-94.0); Mean Platelet Volume 7.3 fL (7.4-10.4); Monocytes 10 % (0-10); Neutrophil 74 % (42-75); PLT Morphology Comment Appears Adequate; Platelet Count 216 thou/uL (130-400); RBC Distribution Width 15.9 % (11.5-14.5); Red Blood Cell (RBC) Count 3.32 mill/uL (4.70-6.10); White Blood Cell (WBC) Count 13.7 thou/uL (4.8-10.8)
[2017-12-11 06:40] LABS: ALT (SGPT) 57 U/L (8-55); AST (SGOT) 270 U/L (5-34); Albumin 2.3 g/dL (3.5-5.0); Alkaline Phosphatase 621 U/L (40-150); Anion Gap 12 mmol/L (10-20); BUN (Urea Nitrogen) 24 mg/dL (8.4-25.7); Bilirubin, Total 11.9 mg/dL (0.2-1.2); Calc. Creatinine Clearance 98 mL/min (70-130); Calcium 7.8 mg/dL (7.8-10.44); Carbon Dioxide 27 mmol/L (22-29); Chloride 91 mmol/L (98-107); Estimated GFR-MDRD 85; Glucose 115 mg/dL (70-105); Protein, Total 6.3 g/dL (6.0-8.3); Sodium 126 mmol/L (136-145)
[2017-12-11] MEDS: Famotidine 20 MG TAB PO SCH ×2 (07:50→20:44)
[2017-12-11] MEDS: Docusate 100 MG CAP PO SCH ×2 (07:50→20:45)
[2017-12-11 11:21] LABS: HCV log10 4.524 (.); Hep C PCR-Quant 33400 IU/mL (.)
--- NOTE | 2017-12-11 14:11 | PDOC.PN ---
- Subjective Encounter Start Date: 12/11/17 Encounter Start Time: 13:00 -: old records requested/rev Pt seen and examined, chart reviewed in its entirety, this is my first visit with this patient No F/C, no N/V/D/C, no CP, no SOB Belly painful today, pt states its as swollen AND DISTENDED PRE- PARACENTESIS. PATH RETURNED MOD- TO WELL differentiated adenoCA of the colon awaiting Dr Eli to return with recommendations 10 point ROS performed and neg for all systems except as per HPI - Objective Resuscitation Status: Resuscitation Status FULL:Full Resuscitation MAR Reviewed: Yes Vital Signs & Weight: Vital Signs (12 hours) Temp Pulse Resp BP Pulse Ox 12/11/17 11:20 97.3 F L 95 18 115/77 96 12/11/17 08:30 97.5 F L 97 16 119/74 95 12/11/17 08:00 97.5 F L 97 16 95 Weight Weight 168 lb 3.2 oz I&O: 12/10/17 12/11/17 12/12/17 06:59 06:59 06:59 Intake Total 240 240 Balance 240 240 Result Diagrams: 12/11/17 06:15 12/11/17 03:30 Radiology Reviewed by me: Yes EKG Reviewed by me: Yes Phys Exam - Physical Examination Constitutional: NAD HEENT: PERRLA, moist MMs, sclera anicteric, oral pharynx no lesions Neck: no nodes, no JVD, supple, full ROM Respiratory: no wheezing, no rales, no rhonchi, clear to auscultation bilateral Cardiovascular: RRR, no significant murmur, no rub distended and tympanitis, +shifting dullness, no Rebound no peritoneal sign Musculoskeletal: pulses present, edema present Neurological: non-focal, normal sensation, moves all 4 limbs Lymphatic: no nodes Psychiatric: normal affect, A&O x 3 Skin: no rash, normal turgor, cap refill <2 seconds Dx/Plan (1) Anorexia Code(s): R63.0 - ANOREXIA Status: Acute Comment: secondary to #1 (2) Ascites Code(s): R18.8 - OTHER ASCITES Status: Acute Qualifiers: Ascites type: malignant Qualified Code(s): R18.0 - Malignant ascites Comment: Suspected malignant ascites, s/p paracentesis with 3L removed, may need additional ascites removed for comfort. ? pigtail for comfort. Cytology pending (3) Colon adenocarcinoma Code(s): C18.9 - MALIGNANT NEOPLASM OF COLON, UNSPECIFIED Status: Acute Comment: AdenoCA of colon on path, mod to well differentiated, given overall clinical picture Stage IV advanced and end-stage process, planning for chemo once pathology reviewed (4) Hyperbilirubinemia Code(s): E80.6 - OTHER DISORDERS OF BILIRUBIN METABOLISM Status: Acute (5) Hyponatremia Code(s): E87.1 - HYPO-OSMOLALITY AND HYPONATREMIA Status: Acute Comment: ? acute/subacute, likely multifactorial given ascites, poor po intake and concern for malignant process (6) Liver masses Code(s): R16.0 - HEPATOMEGALY, NOT ELSEWHERE CLASSIFIED Status: Acute Comment: Suspicious for malignancy and metastatic process given sigmoid mass likely malignant, Medical oncology following, likely chemo to follow (7) Sigmoid stricture Code(s): K56.699 - OTHER INTESTNL OBST UNSP TO PARTIAL VERSUS COMPLETE OBST Status: Acute Comment: CT imaging showing possible mass, colonoscopy confirmed likely malignant mass, consult gen surgery for resection (8) Transaminitis Code(s): R74.0 - NONSPEC ELEV OF LEVELS OF TRANSAMNS & LACTIC ACID DEHYDRGNSE Status: Acute Comment: Supportive care, serial monitoring - Plan * .
[2017-12-12 06:17] LABS: #Eosinphils 0.1 thou/uL (0.0-0.7); #Monocytes 1.5 thou/uL (0.11-0.59); #Neutrophils 11.4 thou/uL (1.40-6.50); %Basophils 0.2 % (0.0-1.0); %Eosinophils 0.6 % (0.0-10.0); %Lymphocytes 7.4 % (21.0-51.0); %Monocytes 10.6 % (0.0-10.0); %Neutrophils 81.2 % (42.0-75.0); Hemoglobin 10.8 g/dL (14.0-18.0); Mean Corpuscular HGB CONC 32.2 g/dL (32.0-36.0); Mean Corpuscular Hemoglobin 32.1 pg (27.0-31.0); Mean Corpuscular Volume 99.8 fl (80.0-94.0); Platelet Count 207 thou/uL (130-400); RBC Distribution Width 15.6 % (11.5-14.5); Red Blood Cell (RBC) Count 3.35 mill/uL (4.70-6.10)
[2017-12-12 06:24] LABS: ALT (SGPT) 48 U/L (8-55); AST (SGOT) 233 U/L (5-34); Albumin 2.3 g/dL (3.5-5.0); Alkaline Phosphatase 618 U/L (40-150); Anion Gap 13 mmol/L (10-20); BUN (Urea Nitrogen) 24 mg/dL (8.4-25.7); Bilirubin, Total 13.1 mg/dL (0.2-1.2); Calc. Creatinine Clearance 106 mL/min (70-130); Calcium 8.1 mg/dL (7.8-10.44); Carbon Dioxide 26 mmol/L (22-29); Chloride 90 mmol/L (98-107); Estimated GFR-MDRD Greater than 90; Globulin 4.2 g/dL (2.4-3.5); Glucose 98 mg/dL (70-105); Magnesium 1.8 mg/dL (1.6-2.6); Potassium 4.3 mmol/L (3.5-5.1); Protein, Total 6.5 g/dL (6.0-8.3); Sodium 125 mmol/L (136-145)
[2017-12-12] MEDS: Famotidine 20 MG TAB PO SCH ×2 (08:51→20:34)
[2017-12-12] MEDS: Docusate 100 MG CAP PO SCH ×2 (08:52→20:35)
[2017-12-12] MEDS ORDERED: BEVACIZUMAB IVPB SCH (09:45)
[2017-12-12] MEDS ORDERED: ADMIXTURE FEE IVPB SCH ×2 (09:45)
[2017-12-12] MEDS ORDERED: Ondansetron HCl/PF 4 MG/2 ML Vial IVP SCH (09:45)
[2017-12-12] MEDS ORDERED: SODIUM CHLORIDE IVPB SCH (09:45)
[2017-12-12] MEDS ORDERED: Dexamethasone 4 mg/ml Vial SLOW IVP SCH (09:45)
[2017-12-12] MEDS ORDERED: WATER IVPB SCH (09:45)
[2017-12-12] MEDS ORDERED: OXALIPLATIN IVPB SCH (09:45)
[2017-12-12] MEDS ORDERED: DEXTROSE IVPB SCH (09:45)
--- NOTE | 2017-12-12 13:40 | PDOC.PN ---
- Subjective Encounter Start Date: 12/12/17 Encounter Start Time: 11:10 Pt feeling better, jennifer small volume meals frequently. seen by Onc. plan to start chemo tomorrow or Sunday. No F/c,no N/v/d/c, no CP, n SOb today. jennifer getting up to shower. 10 point ROS performed and neg for all systems except as per HPI - Objective Resuscitation Status: Resuscitation Status FULL:Full Resuscitation MAR Reviewed: Yes Vital Signs & Weight: Vital Signs (12 hours) Temp Pulse Resp BP Pulse Ox 12/12/17 08:00 98 F 96 24 H 110/78 95 12/12/17 02:45 94 20 106/67 98 Weight Admit Weight 168 lb 3.2 oz Weight 168 lb 3.2 oz I&O: 12/11/17 12/12/17 12/13/17 06:59 06:59 06:59 Intake Total 240 1030 Balance 240 1030 Result Diagrams: 12/12/17 05:50 12/12/17 05:50 Radiology Reviewed by me: Yes EKG Reviewed by me: Yes Phys Exam - Physical Examination Constitutional: NAD HEENT: PERRLA, moist MMs, oral pharynx no lesions + icterus Neck: no nodes, no JVD, supple, full ROM Respiratory: no wheezing, no rales, no rhonchi, clear to auscultation bilateral Cardiovascular: RRR, no significant murmur, no rub Gastrointestinal: soft, non-tender, positive bowel sounds distended, fluid wave. Musculoskeletal: pulses present, edema present Neurological: non-focal, normal sensation, moves all 4 limbs Lymphatic: no nodes Psychiatric: normal affect, A&O x 3 Skin: no rash, normal turgor, cap refill <2 seconds Deviation from normal: jaundiced Dx/Plan (1) Anorexia Code(s): R63.0 - ANOREXIA Status: Acute Comment: secondary to #1 (2) Ascites Code(s): R18.8 - OTHER ASCITES Status: Acute Qualifiers: Ascites type: malignant Qualified Code(s): R18.0 - Malignant ascites Comment: Suspected malignant ascites, s/p paracentesis with 3L removed, may need additional ascites removed for comfort. ? pigtail for comfort. Cytology pending (3) Colon adenocarcinoma Code(s): C18.9 - MALIGNANT NEOPLASM OF COLON, UNSPECIFIED Status: Acute Comment: AdenoCA of colon on path, mod to well differentiated, given overall clinical picture Stage IV advanced and end-stage process, planning for chemo once pathology reviewed (4) Hyperbilirubinemia Code(s): E80.6 - OTHER DISORDERS OF BILIRUBIN METABOLISM Status: Acute (5) Hyponatremia Code(s): E87.1 - HYPO-OSMOLALITY AND HYPONATREMIA Status: Acute Comment: ? acute/subacute, likely multifactorial given ascites, poor po intake and concern for malignant process (6) Liver masses Code(s): R16.0 - HEPATOMEGALY, NOT ELSEWHERE CLASSIFIED Status: Acute Comment: Suspicious for malignancy and metastatic process given sigmoid mass likely malignant, Medical oncology following, likely chemo to follow (7) Sigmoid stricture Code(s): K56.699 - OTHER INTESTNL OBST UNSP TO PARTIAL VERSUS COMPLETE OBST Status: Acute Comment: CT imaging showing possible mass, colonoscopy confirmed likely malignant mass, consult gen surgery for resection (8) Transaminitis Code(s): R74.0 - NONSPEC ELEV OF LEVELS OF TRANSAMNS & LACTIC ACID DEHYDRGNSE Status: Acute Comment: Supportive care, serial monitoring - Plan cont current plan of care, plan discussed w/ family, PT/OT, drug abuse social worker, out of bed/ambulate * .
[2017-12-13] MEDS: Docusate 100 MG CAP PO SCH ×2 (08:31→22:40)
[2017-12-13] MEDS: Famotidine 20 MG TAB PO SCH ×2 (08:32→22:40)
--- NOTE | 2017-12-13 14:33 | PDOC.PN ---
- Subjective Encounter Start Date: 12/13/17 Encounter Start Time: 10:30 No F/C, no n/V/D/C. last good BM was yesterday. Tp had episode of crampy 09/23 abd pain earlier, relieved with 2mg IV morphine Plan to start Cehmo tomorrow 10 point ROS performed and neg for all systems except as per HPI - Objective Resuscitation Status: Resuscitation Status FULL:Full Resuscitation MAR Reviewed: Yes Vital Signs & Weight: Vital Signs (12 hours) Temp Pulse Resp BP Pulse Ox 12/13/17 08:00 97.8 F 91 14 102/63 96 12/13/17 03:54 98.0 F 88 16 110/64 96 Weight Admit Weight 168 lb 3.2 oz Weight 168 lb 3.2 oz I&O: 12/12/17 12/13/17 12/14/17 06:59 06:59 06:59 Intake Total 1030 1340 720 Balance 1030 1340 720 Result Diagrams: 12/12/17 05:50 12/12/17 05:50 Phys Exam - Physical Examination Constitutional: NAD HEENT: PERRLA, moist MMs, oral pharynx no lesions +icterus Neck: no nodes, no JVD, supple, full ROM Respiratory: no wheezing, no rales, no rhonchi fine bisaliar crackles, clear with deep inspriation Cardiovascular: RRR, no significant murmur, no rub Gastrointestinal: soft, non-tender, positive bowel sounds distended with fluid, not tense Musculoskeletal: pulses present, edema present Neurological: non-focal, normal sensation, moves all 4 limbs Lymphatic: no nodes Psychiatric: normal affect, A&O x 3 Skin: no rash, normal turgor, cap refill <2 seconds Deviation from normal: +janudice Dx/Plan (1) Anorexia Code(s): R63.0 - ANOREXIA Status: Acute Comment: secondary to #1 (2) Ascites Code(s): R18.8 - OTHER ASCITES Status: Acute Qualifiers: Ascites type: malignant Qualified Code(s): R18.0 - Malignant ascites Comment: Suspected malignant ascites, s/p paracentesis with 3L removed, may need additional ascites removed for comfort. ? pigtail for comfort. Cytology pending (3) Colon adenocarcinoma Code(s): C18.9 - MALIGNANT NEOPLASM OF COLON, UNSPECIFIED Status: Acute Comment: AdenoCA of colon on path, mod to well differentiated, given overall clinical picture Stage IV advanced and end-stage process, planning for chemo to start tomorrow (4) Hyperbilirubinemia Code(s): E80.6 - OTHER DISORDERS OF BILIRUBIN METABOLISM Status: Acute Comment: secondary to liver mets. (5) Hyponatremia Code(s): E87.1 - HYPO-OSMOLALITY AND HYPONATREMIA Status: Acute Comment: ? acute/subacute, likely multifactorial given ascites, poor po intake and concern for malignant process (6) Liver masses Code(s): R16.0 - HEPATOMEGALY, NOT ELSEWHERE CLASSIFIED Status: Acute Comment: Suspicious for malignancy and metastatic process given sigmoid mass likely malignant, Medical oncology following, likely chemo to follow (7) Sigmoid stricture Code(s): K56.699 - OTHER INTESTNL OBST UNSP TO PARTIAL VERSUS COMPLETE OBST Status: Acute Comment: CT imaging showing possible mass, colonoscopy confirmed likely malignant mass, consult gen surgery for resection (8) Transaminitis Code(s): R74.0 - NONSPEC ELEV OF LEVELS OF TRANSAMNS & LACTIC ACID DEHYDRGNSE Status: Acute Comment: Supportive care, serial monitoring - Plan cont current plan of care, plan discussed w/ family, PT/OT, social worker school * .
[2017-12-14 06:29] LABS: ALT (SGPT) 48 U/L (8-55); AST (SGOT) 258 U/L (5-34); Albumin 2.3 g/dL (3.5-5.0); Alkaline Phosphatase 624 U/L (40-150); Anion Gap 12 mmol/L (10-20); BUN (Urea Nitrogen) 27 mg/dL (8.4-25.7); Bilirubin, Total 14.1 mg/dL (0.2-1.2); Calc. Creatinine Clearance 105 mL/min (70-130); Calcium 8.2 mg/dL (7.8-10.44); Carbon Dioxide 27 mmol/L (22-29); Chloride 90 mmol/L (98-107); Estimated GFR-MDRD Greater than 90; Globulin 4.3 g/dL (2.4-3.5); Glucose 99 mg/dL (70-105); LDH 909 U/L (125-220); Potassium 4.3 mmol/L (3.5-5.1); Protein, Total 6.6 g/dL (6.0-8.3); Sodium 125 mmol/L (136-145); Uric Acid 5.5 mg/dL (3.5-7.2)
[2017-12-14 06:37] LABS: Hemoglobin 11.4 g/dL (14.0-18.0); Mean Corpuscular HGB CONC 32.1 g/dL (32.0-36.0); Mean Corpuscular Hemoglobin 31.6 pg (27.0-31.0); Mean Corpuscular Volume 98.5 fl (80.0-94.0); Mean Platelet Volume 6.8 fL (7.4-10.4); Platelet Count 175 thou/uL (130-400); RBC Distribution Width 15.7 % (11.5-14.5); White Blood Cell (WBC) Count 17.4 thou/uL (4.8-10.8)
[2017-12-14 08:20] LABS: Band 9 % (5-11); Lymphocytes 6 % (21-51); MDiff Complete? YES; Monocytes 7 % (0-10); Neutrophil 78 % (42-75); PLT Morphology Comment Appears Adequate; RBC Morphology Normal; Target Cells SLIGHT = 2-5 cells (100X) (0-1/hpf)
[2017-12-14] MEDS ORDERED: WATER IVPB SCH (08:30)
[2017-12-14] MEDS ORDERED: DEXTROSE IVPB SCH (08:30)
[2017-12-14] MEDS ORDERED: OXALIPLATIN IVPB SCH (08:30)
[2017-12-14] MEDS ORDERED: SODIUM CHLORIDE IVPB SCH (08:30)
[2017-12-14] MEDS ORDERED: BEVACIZUMAB IVPB SCH (08:30)
[2017-12-14] MEDS ORDERED: ADMIXTURE FEE IVPB SCH ×2 (08:30)
[2017-12-14] MEDS ORDERED: FLUOROURACIL IVPB SCH (10:00)
[2017-12-14] MEDS ORDERED: SODIUM CHLORIDE 0.9% IVPB SCH (10:00)
[2017-12-14] MEDS ORDERED: Ondansetron HCl/PF 4 MG/2 ML Vial IVP SCH (10:30)
[2017-12-14] MEDS ORDERED: Dexamethasone 10 MG/ML VIAL SLOW IVP SCH (10:30)
[2017-12-14] MEDS: Famotidine 20 MG TAB PO SCH ×2 (11:40→20:45)
[2017-12-14] MEDS: Docusate 100 MG CAP PO SCH ×2 (11:40→20:46)
[2017-12-14 12:26] LABS: PTT 29.9 SEC (22.9-36.1)
[2017-12-14 12:30] LABS: INR-International Normal Ratio 1.3; Prothrombin Time 16.7 SEC (12.0-14.7)
--- NOTE | 2017-12-14 12:57 | PDOC.PN ---
- Subjective Encounter Start Date: 12/14/17 Encounter Start Time: 13:15 Afebrile no new complaints, gavin controlled. Bentyl added prn spasm no N/V/d/C, no Cp or SOB, chemo to srtart today 10 point ROS performed and neg for all systems except as above - Objective Resuscitation Status: Resuscitation Status FULL:Full Resuscitation MAR Reviewed: Yes Vital Signs & Weight: Vital Signs (12 hours) Temp Pulse Resp BP Pulse Ox 12/14/17 11:30 97.7 F 89 18 116/69 92 L 12/14/17 07:40 97.5 F L 87 18 119/74 95 Weight Admit Weight 168 lb 3.2 oz Weight 168 lb 3.2 oz I&O: 12/13/17 12/14/17 12/15/17 06:59 06:59 06:59 Intake Total 1340 1360 Output Total 1200 Balance 1340 160 Result Diagrams: 12/14/17 05:50 12/14/17 05:50 Phys Exam - Physical Examination Constitutional: NAD HEENT: PERRLA, moist MMs, sclera anicteric, oral pharynx no lesions Neck: no nodes, no JVD, supple, full ROM Respiratory: no wheezing, no rales, no rhonchi, clear to auscultation bilateral Cardiovascular: RRR, no significant murmur, no rub Gastrointestinal: soft, non-tender, positive bowel sounds +distended Musculoskeletal: pulses present, edema present Neurological: non-focal, normal sensation, moves all 4 limbs Lymphatic: no nodes Psychiatric: normal affect, A&O x 3 Skin: normal turgor, cap refill <2 seconds Dx/Plan (1) Anorexia Code(s): R63.0 - ANOREXIA Status: Acute Comment: secondary to #1 (2) Ascites Code(s): R18.8 - OTHER ASCITES Status: Acute Qualifiers: Ascites type: malignant Qualified Code(s): R18.0 - Malignant ascites Comment: Suspected malignant ascites, s/p paracentesis with 3L removed, may need additional ascites removed for comfort. ? pigtail for comfort. Cytology pending (3) Colon adenocarcinoma Code(s): C18.9 - MALIGNANT NEOPLASM OF COLON, UNSPECIFIED Status: Acute Comment: AdenoCA of colon on path, mod to well differentiated, given overall clinical picture Stage IV advanced and end-stage process, planning for chemo to start today, follow up on onc recommendations (4) Hyperbilirubinemia Code(s): E80.6 - OTHER DISORDERS OF BILIRUBIN METABOLISM Status: Acute Comment: secondary to liver mets. (5) Hyponatremia Code(s): E87.1 - HYPO-OSMOLALITY AND HYPONATREMIA Status: Acute Comment: ? acute/subacute, likely multifactorial given ascites, poor po intake and concern for malignant process (6) Liver masses Code(s): R16.0 - HEPATOMEGALY, NOT ELSEWHERE CLASSIFIED Status: Acute Comment: Suspicious for malignancy and metastatic process given sigmoid mass likely malignant, Medical oncology following, likely chemo to follow (7) Sigmoid stricture Code(s): K56.699 - OTHER INTESTNL OBST UNSP TO PARTIAL VERSUS COMPLETE OBST Status: Acute Comment: CT imaging showing possible mass, colonoscopy confirmed likely malignant mass, consult gen surgery for resection (8) Transaminitis Code(s): R74.0 - NONSPEC ELEV OF LEVELS OF TRANSAMNS & LACTIC ACID DEHYDRGNSE Status: Acute Comment: Supportive care, serial monitoring - Plan cont current plan of care, plan discussed w/ family, PT/OT, out of bed/ambulate * .
[2017-12-14] MEDS: Admixture Fee 1 EACH in Dextrose 5% in Water 10 ML FS SCH ×2 (15:08→17:16)
--- NOTE | 2017-12-14 15:33 | ULT ---
ULTRASOUND GUIDED PARACENTESIS: DATE: 12/14/17. COMPARISON: 12/10/17. History Symptomatic ascites, possible malignancy. FINDINGS: Informed consent was obtained prior to the procedure. Preprocedural imaging demonstrates scattered a scites throughout the abdomen/pelvis. The right upper quadrant is prepped and draped in normal sterile fashion and anesthetized with 1% buf fered Lidocaine. With direct sonographic guidance, a 5 [place] Linchpineh catheter is advanced into the asc ites in the right upper quadrant and removal of the stylette yields yellow fluid. 3650 cc were remov ed. The patient tolerated the procedure well. IMPRESSION: Successful ultrasound-guided paracentesis. POS: LUIS
[2017-12-15] MEDS: Docusate 100 MG CAP PO SCH ×2 (08:50→20:35)
[2017-12-15] MEDS: Famotidine 20 MG TAB PO SCH ×2 (08:50→20:35)
[2017-12-15] MEDS ORDERED: FLUOROURACIL IVPB SCH (10:00)
[2017-12-15] MEDS ORDERED: SODIUM CHLORIDE 0.9% IVPB SCH (10:00)
--- NOTE | 2017-12-15 14:43 | PDOC.PN ---
- Subjective Encounter Start Date: 12/15/17 Encounter Start Time: 14:00 Pt getting chemo, 5-FU at present, tolerating well, no f/c, no n/V/D/C. Has paracentesis and 3.5L removed prior to chemo. no CP or sOB, abd slightly tender. 10 point ROS performed and neg for all systems except as per HPI - Objective Resuscitation Status: Resuscitation Status FULL:Full Resuscitation MAR Reviewed: Yes Vital Signs & Weight: Vital Signs (12 hours) Temp Pulse Resp BP Pulse Ox 12/15/17 11:54 97.6 F 70 24 H 119/76 95 12/15/17 08:00 97.4 F L 74 16 95 12/15/17 07:43 97.4 F L 74 16 104/70 95 12/15/17 03:48 97.5 F L 74 12 108/69 98 Weight Admit Weight 168 lb 3.2 oz Weight 168 lb 3.192 oz I&O: 12/14/17 12/15/17 12/16/17 06:59 06:59 06:59 Intake Total 1360 1182 Output Total 1200 Balance 160 1182 Result Diagrams: 12/16/17 03:38 12/16/17 03:38 Radiology Reviewed by me: Yes EKG Reviewed by me: Yes Phys Exam - Physical Examination Constitutional: NAD HEENT: PERRLA, moist MMs, TM's clear, oral pharynx no lesions +icterus Neck: no nodes, no JVD, supple, full ROM Respiratory: no wheezing, no rales, no rhonchi, clear to auscultation bilateral Cardiovascular: RRR, no significant murmur, no rub Gastrointestinal: soft, non-tender, positive bowel sounds distended, but less Musculoskeletal: pulses present, edema present Neurological: non-focal, normal sensation, moves all 4 limbs Lymphatic: no nodes Psychiatric: normal affect, A&O x 3 Skin: no rash, normal turgor, cap refill <2 seconds Dx/Plan (1) Anorexia Code(s): R63.0 - ANOREXIA Status: Acute Comment: secondary to #1 (2) Ascites Code(s): R18.8 - OTHER ASCITES Status: Acute Qualifiers: Ascites type: malignant Qualified Code(s): R18.0 - Malignant ascites Comment: Suspected malignant ascites, s/p paracentesis with 3L removed, may need additional ascites removed for comfort. ? pigtail for comfort. Cytology pending (3) Colon adenocarcinoma Code(s): C18.9 - MALIGNANT NEOPLASM OF COLON, UNSPECIFIED Status: Acute Comment: AdenoCA of colon on path, mod to well differentiated, given overall clinical picture Stage IV advanced and end-stage process, planning for chemo to start today, follow up on onc recommendations (4) Hyperbilirubinemia Code(s): E80.6 - OTHER DISORDERS OF BILIRUBIN METABOLISM Status: Acute Comment: secondary to liver mets. (5) Hyponatremia Code(s): E87.1 - HYPO-OSMOLALITY AND HYPONATREMIA Status: Acute Comment: ? acute/subacute, likely multifactorial given ascites, poor po intake and concern for malignant process (6) Liver masses Code(s): R16.0 - HEPATOMEGALY, NOT ELSEWHERE CLASSIFIED Status: Acute Comment: Suspicious for malignancy and metastatic process given sigmoid mass likely malignant, Medical oncology following, likely chemo to follow (7) Sigmoid stricture Code(s): K56.699 - OTHER INTESTNL OBST UNSP TO PARTIAL VERSUS COMPLETE OBST Status: Acute Comment: CT imaging showing possible mass, colonoscopy confirmed likely malignant mass, consult gen surgery for resection, no current plans (8) Transaminitis Code(s): R74.0 - NONSPEC ELEV OF LEVELS OF TRANSAMNS & LACTIC ACID DEHYDRGNSE Status: Acute Comment: Supportive care, serial monitoring - Plan * .
[2017-12-16 05:45] LABS: #Eosinphils 0.1 thou/uL (0.0-0.7); #Lymphocytes 1.2 thou/uL (1.20-3.40); #Monocytes 0.7 thou/uL (0.11-0.59); #Neutrophils 15.2 thou/uL (1.40-6.50); %Basophils 0.1 % (0.0-1.0); %Eosinophils 0.4 % (0.0-10.0); %Monocytes 4.2 % (0.0-10.0); %Neutrophils 88.3 % (42.0-75.0); Hemoglobin 11.9 g/dL (14.0-18.0); Mean Corpuscular Hemoglobin 30.7 pg (27.0-31.0); Mean Corpuscular Volume 98.8 fl (80.0-94.0); Platelet Count 144 thou/uL (130-400); RBC Distribution Width 15.9 % (11.5-14.5); Red Blood Cell (RBC) Count 3.89 mill/uL (4.70-6.10); White Blood Cell (WBC) Count 17.3 thou/uL (4.8-10.8)
[2017-12-16 06:17] LABS: ALT (SGPT) 75 U/L (8-55); AST (SGOT) 343 U/L (5-34); Albumin 2.3 g/dL (3.5-5.0); Alkaline Phosphatase 599 U/L (40-150); Anion Gap 18 mmol/L (10-20); BUN (Urea Nitrogen) 38 mg/dL (8.4-25.7); Bilirubin, Total 14.3 mg/dL (0.2-1.2); Calc. Creatinine Clearance 68 mL/min (70-130); Calcium 8.1 mg/dL (7.8-10.44); Carbon Dioxide 22 mmol/L (22-29); Chloride 89 mmol/L (98-107); Estimated GFR-MDRD 56; Globulin 4.2 g/dL (2.4-3.5); Glucose 79 mg/dL (70-105); Magnesium 1.8 mg/dL (1.6-2.6); Potassium 4.9 mmol/L (3.5-5.1); Protein, Total 6.5 g/dL (6.0-8.3); Sodium 124 mmol/L (136-145)
[2017-12-16] MEDS: Docusate 100 MG CAP PO SCH ×2 (08:41→20:21)
[2017-12-16] MEDS: Famotidine 20 MG TAB PO SCH ×2 (08:41→20:21)
--- NOTE | 2017-12-16 13:54 | PDOC.PN ---
- Subjective Encounter Start Date: 12/16/17 Encounter Start Time: 09:00 jennifer chemo, about 6 hours to go, no n/v/D/c, no CP or SOB, seems a little confused or forgetful. no acute overnight events 10 point ROS performed and neg for all systems except as above - Objective Resuscitation Status: Resuscitation Status FULL:Full Resuscitation MAR Reviewed: Yes Vital Signs & Weight: Vital Signs (12 hours) Temp Pulse Resp BP Pulse Ox 12/16/17 12:00 97.5 F L 81 24 H 121/70 92 L 12/16/17 08:00 97.7 F 84 24 H 92 L 12/16/17 07:12 97.7 F 84 24 H 118/73 92 L 12/16/17 03:34 97.8 F 86 12 125/68 96 Weight Admit Weight 168 lb 3.2 oz Weight 168 lb 3.192 oz I&O: 12/15/17 12/16/17 12/17/17 06:59 06:59 06:59 Intake Total 1182 1062 Balance 1182 1062 Result Diagrams: 12/16/17 03:38 12/16/17 03:38 Phys Exam - Physical Examination Constitutional: NAD HEENT: PERRLA, moist MMs, oral pharynx no lesions +icterus Neck: no nodes, no JVD, supple, full ROM Respiratory: no wheezing, no rales, no rhonchi, clear to auscultation bilateral Cardiovascular: RRR, no significant murmur, no rub Gastrointestinal: soft, non-tender, positive bowel sounds more distended today Musculoskeletal: pulses present, edema present Neurological: non-focal, normal sensation, moves all 4 limbs Lymphatic: no nodes Psychiatric: normal affect, A&O x 3 Skin: no rash, normal turgor, cap refill <2 seconds Deviation from normal: jaundiced Dx/Plan (1) Anorexia Code(s): R63.0 - ANOREXIA Status: Acute Comment: secondary to #1 (2) Ascites Code(s): R18.8 - OTHER ASCITES Status: Acute Qualifiers: Ascites type: malignant Qualified Code(s): R18.0 - Malignant ascites Comment: Suspected malignant ascites, s/p paracentesis with 3L removed, may need additional ascites removed for comfort. ? pigtail for comfort. Cytology pending (3) Colon adenocarcinoma Code(s): C18.9 - MALIGNANT NEOPLASM OF COLON, UNSPECIFIED Status: Acute Comment: AdenoCA of colon on path, mod to well differentiated, given overall clinical picture Stage IV advanced and end-stage process, fisniehd chemo today. plan discharge tomorow, have consulted case management to see if there is any [facility] available (4) Hyperbilirubinemia Code(s): E80.6 - OTHER DISORDERS OF BILIRUBIN METABOLISM Status: Acute Comment: secondary to liver mets. (5) Hyponatremia Code(s): E87.1 - HYPO-OSMOLALITY AND HYPONATREMIA Status: Acute Comment: ? acute/subacute, likely multifactorial given ascites, poor po intake and concern for malignant process (6) Liver masses Code(s): R16.0 - HEPATOMEGALY, NOT ELSEWHERE CLASSIFIED Status: Acute Comment: Suspicious for malignancy and metastatic process given sigmoid mass likely malignant, Medical oncology following, likely chemo to follow (7) Sigmoid stricture Code(s): K56.699 - OTHER INTESTNL OBST UNSP TO PARTIAL VERSUS COMPLETE OBST Status: Acute Comment: CT imaging showing possible mass, colonoscopy confirmed likely malignant mass, consult gen surgery for resection, no current plans (8) Transaminitis Code(s): R74.0 - NONSPEC ELEV OF LEVELS OF TRANSAMNS & LACTIC ACID DEHYDRGNSE Status: Acute Comment: Supportive care, serial monitoring - Plan * .
[2017-12-17 06:24] LABS: #Monocytes 0.1 thou/uL (0.11-0.59); %Basophils 0.2 % (0.0-1.0); %Eosinophils 0.2 % (0.0-10.0); %Lymphocytes 6.9 % (21.0-51.0); %Monocytes 0.8 % (0.0-10.0); %Neutrophils 91.9 % (42.0-75.0); Hemoglobin 11.5 g/dL (14.0-18.0); Mean Corpuscular HGB CONC 31.9 g/dL (32.0-36.0); PLT Morphology Comment Appears Decreased; Platelet Count 104 thou/uL (130-400); RBC Distribution Width 16.1 % (11.5-14.5); Red Blood Cell (RBC) Count 3.59 mill/uL (4.70-6.10); White Blood Cell (WBC) Count 14.1 thou/uL (4.8-10.8)
[2017-12-17 06:26] LABS: ALT (SGPT) 72 U/L (8-55); AST (SGOT) 316 U/L (5-34); Albumin 2.2 g/dL (3.5-5.0); Alkaline Phosphatase 542 U/L (40-150); Anion Gap 17 mmol/L (10-20); BUN (Urea Nitrogen) 49 mg/dL (8.4-25.7); Bilirubin, Total 14.5 mg/dL (0.2-1.2); Calc. Creatinine Clearance 70 mL/min (70-130); Carbon Dioxide 24 mmol/L (22-29); Chloride 90 mmol/L (98-107); Estimated GFR-MDRD 57; Glucose 83 mg/dL (70-105); Magnesium 2.1 mg/dL (1.6-2.6); Protein, Total 6.2 g/dL (6.0-8.3); Sodium 126 mmol/L (136-145)
[2017-12-17 07:49] VITALS: BP 114/68; TEMP 97.4
[2017-12-17] MEDS: Famotidine 20 MG TAB PO SCH (08:58)
[2017-12-17] MEDS: Docusate 100 MG CAP PO SCH (08:58)
== END 2017-12-17 16:15 | disposition home or self-care (01) | DRG 374 ==
LOC: ERS 19:53 → T4-A 22:20 → ONC 12-10 14:21
PROVIDERS: ADMIT Internal Medicine; ATTEND Internal Medicine
PROC: 0DB98ZX Excision of Duodenum, Via Natural or Artificial Opening Endoscopic, Diagnostic (ICD-10-PCS; 2017-12-09)
PROC: 0DB68ZX Excision of Stomach, Via Natural or Artificial Opening Endoscopic, Diagnostic (ICD-10-PCS; 2017-12-09)
PROC: 0DBN8ZX Excision of Sigmoid Colon, Via Natural or Artificial Opening Endoscopic, Diagnostic (ICD-10-PCS; 2017-12-09)
PROC: 0JH60WZ Insertion of Totally Implantable Vascular Access Device into Chest Subcutaneous Tissue and Fascia, Open Approach (ICD-10-PCS; principal; 2017-12-10)
PROC: 02HV33Z Insertion of Infusion Device into Superior Vena Cava, Percutaneous Approach (ICD-10-PCS; 2017-12-10)
PROC: B5181ZA Fluoroscopy of Superior Vena Cava using Low Osmolar Contrast, Guidance (ICD-10-PCS; 2017-12-10)
PROC: 0W9G3ZX Drainage of Peritoneal Cavity, Percutaneous Approach, Diagnostic (ICD-10-PCS; 2017-12-10)
PROC: 0W9G3ZX Drainage of Peritoneal Cavity, Percutaneous Approach, Diagnostic (ICD-10-PCS; 2017-12-14)
PROC: 3E04305 Introduction of Other Antineoplastic into Central Vein, Percutaneous Approach (ICD-10-PCS; 2017-12-14)
DX: C19 Malignant neoplasm of rectosigmoid junction (principal); I81 Portal vein thrombosis; R18.0 Malignant ascites; R64 Cachexia; E44.0 Moderate protein-calorie malnutrition; E87.2 Acidosis; C78.7 Secondary malignant neoplasm of liver and intrahepatic bile duct; E87.1 Hypo-osmolality and hyponatremia; N39.0 Urinary tract infection, site not specified; E86.0 Dehydration; F17.210 Nicotine dependence, cigarettes, uncomplicated; Z88.5 Allergy status to narcotic agent; Z68.25 Body mass index [BMI] 25.0-25.9, adult; K64.8 Other hemorrhoids; K21.9 Gastro-esophageal reflux disease without esophagitis; E80.6 Other disorders of bilirubin metabolism; R74.0 Nonspecific elevation of levels of transaminase and lactic acid dehydrogenase [LDH]; Z51.5 Encounter for palliative care
CPT/HCPCS: 36415; 49083; 71045; 80048; 80053; 80074; 81003; 81015; 82042; 82248; 82378; 83605; 83615; 83735; 84157; 84550; 85007; 85025; 85027; 85610; 85730; 86304; 87040; 87070; 87205; 87522; 88112; 88305; 88312; 96360; 96372; A4216; C1788; J0670; J1100; J1642; J1650; J2001; J2250; J2270; J2405; J2704; J3010; J7050; J7070; J9035; J9190; J9263